=== PATIENT | female | born 1940 | race Caucasian/White ===

== ENCOUNTER 2020-09-29 18:26 | Inpatient (IN) | payer MEDICARE, OTHER ==
[2020-09-29 19:19] LABS: Bilirubin Negative (Negative); Blood, Urine Negative (Negative); Clarity Extra Turbid (Clear); Glucose, Urine (Dipstick) Normal (Negative); Ketone, Urine 20 mg/dL (Negative); Leukocyte Negative Leu/uL (Negative); Nitrite Negative (Negative); Protein, Urine (Dipstick) Negative (Neg-Trace); Specific Gravity, Urine 1.012 (1.002-1.036); Urobilinogen Normal mg/dL (Less than 2)
[2020-09-29 19:20] LABS: #Lymphocytes 0.3 thou/uL (1.20-3.40); #Monocytes 0.4 thou/uL (0.11-0.59); #Neutrophils 12.5 thou/uL (1.40-6.50); %Basophils 0.1 % (0.0-1.0); %Eosinophils 0.1 % (0.0-10.0); %Lymphocytes 2.2 % (21.0-51.0); %Monocytes 3.1 % (0.0-10.0); %Neutrophils 94.5 % (42.0-75.0); Hemoglobin 12.1 g/dL (12.0-16.0); Mean Corpuscular HGB CONC 33.9 g/dL (32.0-36.0); Mean Corpuscular Hemoglobin 31.8 pg (27.0-31.0); Mean Corpuscular Volume 93.7 fL (78.0-98.0); Mean Platelet Volume 6.9 fL (7.4-10.4); Platelet Count 271 thou/uL (130-400); RBC Distribution Width 11.2 % (11.5-14.5); White Blood Cell (WBC) Count 13.3 thou/uL (4.8-10.8)
--- NOTE | 2020-09-29 19:20 | RAD ---
Portable frontal chest radiograph: 09/29/2020 COMPARISON: None available HISTORY: Fall, trauma, pain FINDINGS: Mild increased linear interstitial density. There is atherosclerotic calcification of the a ortic arch. There is no pneumothorax or pleural fluid. No focal consolidation or alveolar edema. Impression: No acute findings.
--- NOTE | 2020-09-29 19:21 | RAD ---
Frontal and lateral imaging of the right femur: 09/29/2019 HISTORY: Fall, trauma, pain FINDINGS: There is an obliquely oriented fracture at the base of the right femoral head with impactio n and proximal/lateral displacement. There is significant degenerative change involving the right knee with medial and lateral compartment narrowing. IMPRESSION: Impacted and displaced acute fracture at the base of the right femoral head. Orthopedic c onsultation advised.
[2020-09-29 19:26] LABS: Prothrombin Time 12.9 sec (12.0-14.7)
[2020-09-29 19:39] LABS: ALT (SGPT) 35 U/L (8-55); AST (SGOT) 39 U/L (5-34); Albumin 4.4 g/dL (3.4-4.8); Alkaline Phosphatase 165 U/L (40-110); Anion Gap 15 mmol/L (10-20); BUN (Urea Nitrogen) 9 mg/dL (9.8-20.1); Bilirubin, Total 0.7 mg/dL (0.2-1.2); Calc. Creatinine Clearance 0 mL/min (70-130); Calcium 9.1 mg/dL (7.8-10.44); Carbon Dioxide 27 mmol/L (23-31); Chloride 88 mmol/L (98-107); Globulin 2.9 g/dL (2.4-3.5); Glucose 149 mg/dL (83-110); Potassium 3.7 mmol/L (3.5-5.1); Protein, Total 7.3 g/dL (6.0-8.3); Sodium 126 mmol/L (136-145)
[2020-09-29] MEDS ORDERED: Morphine 4 MG/ML VIAL ONE (20:31)
[2020-09-29] MEDS ORDERED: Ketorolac Tromethamine 30 MG/ML VIAL ONE (20:31)
[2020-09-29] MEDS ORDERED: Ondansetron PF 4 MG/2 ML Vial ONE (20:33)
[2020-09-29] MEDS ORDERED: Dextrose 50% Abboject 50 ML SYRINGE SLOW IVP PRN (21:01)
[2020-09-29] MEDS ORDERED: hydrALAZINE 20 MG/ML VIAL SLOW IVP PRN (21:01)
[2020-09-29] MEDS ORDERED: Dextrose 5% in Water 1,000 ML IV PRN (21:01)
[2020-09-29] MEDS ORDERED: Morphine 2 MG/ML VIAL SLOW IVP PRN (21:01)
[2020-09-29] MEDS ORDERED: traMADol HCl 50 MG TAB PO PRN ×2 (21:03)
[2020-09-29] MEDS ORDERED: Cyclobenzaprine 10 MG TAB PO PRN (21:03)
[2020-09-29 22:09] LABS: Magnesium 1.7 mg/dL (1.6-2.6); Phosphorus 4.5 mg/dL (2.3-4.7)
--- NOTE | 2020-09-29 22:36 | HP ---
TRAUMA SURGEON: Dr. Rivers. CONSULTING PHYSICIAN: Dr. Urbina. HISTORY OF PRESENT ILLNESS: Patient is an 80-year-old female who presented to the emergency department via EMS after mechanical fall. Patient was trying to get onto a ramp to walk up to a building. She was not able to sampler pickup her leg all the way and subsequently she tripped on the ledge of the ramp falling forward. Patient denies hitting her head or anticoagulation use. She denies loss of consciousness and tingling in her bilateral upper and lower extremities. Denies neck pain, weakness, chest pain, shortness of breath, cough, nausea, vomiting, diarrhea. REVIEW OF SYSTEMS: All additional 10-point review of systems negative, except as indicated above. PAST MEDICAL HISTORY: Anxiety, hyperlipidemia, diverticulosis. PAST SURGICAL HISTORY: Hysterectomy, appendectomy, tonsillectomy. SOCIAL HISTORY: Patient denies tobacco, drug, and alcohol use. She lives at home independently. She still drives. MEDICATIONS: 1. Colesevelam. 2. Beano. 3. Prozac. 4. Flonase. ALLERGIES: AMOXICILLIN, BUSPIRONE, PRAVASTATIN, ROSUVASTATIN, TETRACYCLINES. PHYSICAL EXAMINATION: VITAL SIGNS: There is no temperature documented, respiratory rate 17, oxygen saturation 99% on 2 L nasal cannula, blood pressure 175/121, heart rate 82. PRIMARY SURVEY: Airway intact. Adequate breath sounds bilaterally. 2+ pulses in the bilateral radials, femorals, and DPs. GCS 15. Gross motor and sensation intact. No lacerations, bruising, or external bleeding. Patient has deformity to her right anterior lateral hip. SECONDARY SURVEY: HEAD: Normocephalic and atraumatic. EYES: Pupils 3 to 2, equal, round, and reactive to light bilaterally. ENT: No signs of trauma. C-SPINE: No signs of trauma. No deformity. No step-offs. Nontender. C- collar not in place. CHEST: Nontender. No crepitus, no abrasions, or ecchymosis noted. ABDOMEN: Soft, nontender, nondistended. PELVIS: Stable to palpation. Nontender. No abrasions or ecchymosis noted. RECTAL: Deferred. GENITOURINARY: Deferred. EXTREMITIES: Patient has some deformity to her right anterior lateral femur. No abrasions or ecchymosis noted. 2+ pulses in bilateral radials, femorals, and DPs. BACK/SPINE: No step-offs or deformities or tenderness to palpation of the thoracic or lumbar spine. No abrasions or ecchymosis noted. NEUROLOGIC: 5/5 strength in bilateral cafeteria food server, plantar flexion, dorsiflexion, gross normal sensation x4 extremities. LABORATORY FINDINGS: White count 13.3, hemoglobin 12.1, hematocrit 35.6, platelets 271. INR 1.0, sodium 126, potassium 3.7, chloride 88, bicarb 27, BUN 9, creatinine 0.58, glucose 149, total bilirubin 0.7, AST 39, ALT 35, alkaline phosphatase 165. UA is negative. DIAGNOSTIC FINDINGS: Chest x-ray demonstrates no acute findings. X-ray of the right femur demonstrates impacted and displaced acute fracture at the base of the right femoral head. Orthopedic consultation advised. ASSESSMENT: 1. Status post mechanical fall from standing. 2. Right femoral neck fracture. 3. Hyponatremia, acute versus chronic-likely due to dehydration. 4. History of anxiety, hyperlipidemia, and diverticulosis. PLAN: The patient will be admitted to the Trauma Service. She will go to the regular surgical nursing floor. She has a heart healthy diet for now and will be n.p.o. at midnight. She will also have normal saline at 75 an hour for a total of [address] Urbina has been consulted and will evaluate the patient to go to the OR tomorrow. Patient will likely need placement in acute rehab facility postoperatively. This patient was discussed with Dr. Rivers before this dictation. Job ID: [id number] MTDD
[2020-09-29] MEDS: Acetaminophen 500 MG TAB PO SCH (22:58)
[2020-09-29] MEDS: Ondansetron PF 4 MG/2 ML Vial IVP PRN (22:59)
[2020-09-29] MEDS: Sodium Chloride 0.9% 1,000 ML IV SCH (23:01)
[2020-09-29] MEDS ORDERED: Magnesium 2 GM/50 ML 2 GM in Premix Bag 1 BAG IVPB SCH (23:45)
[2020-09-30 00:08] VITALS: BMI 20.6
[2020-09-30] MEDS: Ibuprofen 200 MG TAB PO SCH ×3 (05:11→21:35)
[2020-09-30] MEDS: Acetaminophen 500 MG TAB PO SCH ×4 (05:12→23:04)
[2020-09-30 05:46] LABS: #Lymphocytes 0.6 thou/uL (1.20-3.40); #Monocytes 0.7 thou/uL (0.11-0.59); #Neutrophils 12.2 thou/uL (1.40-6.50); %Eosinophils 0.2 % (0.0-10.0); %Lymphocytes 4.6 % (21.0-51.0); %Monocytes 5.1 % (0.0-10.0); %Neutrophils 90.1 % (42.0-75.0); Hemoglobin 11.6 g/dL (12.0-16.0); Mean Corpuscular Hemoglobin 29.9 pg (27.0-31.0); Mean Corpuscular Volume 93.4 fL (78.0-98.0); Platelet Count 288 thou/uL (130-400); RBC Distribution Width 11.5 % (11.5-14.5); Red Blood Cell (RBC) Count 3.86 mill/uL (4.20-5.40); White Blood Cell (WBC) Count 13.5 thou/uL (4.8-10.8)
[2020-09-30 06:05] LABS: Anion Gap 15 mmol/L (10-20); BUN (Urea Nitrogen) 14 mg/dL (9.8-20.1); Calc. Creatinine Clearance 50 mL/min (70-130); Calcium 8.9 mg/dL (7.8-10.44); Carbon Dioxide 28 mmol/L (23-31); Chloride 88 mmol/L (98-107); Glucose 108 mg/dL (83-110); Magnesium 2.7 mg/dL (1.6-2.6); Phosphorus 4.1 mg/dL (2.3-4.7); Potassium 4.1 mmol/L (3.5-5.1); Sodium 127 mmol/L (136-145)
--- NOTE | 2020-09-30 07:59 | CON ---
DATE OF CONSULTATION: 09/30/2020 REQUESTING PHYSICIAN: Jared Rivers MD BRIEF HISTORY OF PRESENT ILLNESS: The patient is an 80 year old female, who presented to the emergency department yesterday evening following a ground level fall at home. She reports that she was trying to walk up a ramp when she tripped and fell. She reports that she uses a cane for ambulation. She reports that she is predominantly a household ambulator. There was no loss of consciousness. She denies any other problems within her extremities. This morning, she is examined in her hospital bed. She is found to be awake and alert. She does have a daughter who lives in [place]. PAST MEDICAL HISTORY: Remarkable for anxiety, hyperlipidemia, and history of diverticulosis. PAST SURGICAL HISTORY: Includes hysterectomy, appendectomy, and tonsillectomy. MEDICATIONS: Include: 1. Prozac. 2. Flonase. 3. Colesevelam. 4. Beano. ALLERGIES: PER THE MEDICAL RECORD INCLUDE AMOXICILLIN, SENSITIVITY TO STATINS, TETRACYCLINE. FAMILY HISTORY: Noncontributory for this fall. SOCIAL HISTORY: She lives independently at home. She denies a history of cigarettes, alcohol, or drug use. REVIEW OF SYSTEMS: The patient does not report any recent fevers, chills, or sweats. She denies coughs, shortness of breath, or chest pain. She denies numbness, tingling, or weakness in her extremities prior to this fall. PHYSICAL EXAMINATION: VITAL SIGNS: She is found to have a temperature of 97.7, heart rate of 89, respiratory rate of 18, and blood pressure 160/71. HEENT: Atraumatic, normocephalic. HEART: Shows a regular rate and rhythm without murmur. LUNGS: Clear to auscultation bilaterally with good breath sounds. Chest wall is nontender. ABDOMEN: Flat, soft, and nontender. PELVIS: Stable to compression. EXTREMITIES: Remarkable for bilateral upper extremities without deformities or complaints of pain. She is moving her shoulders, elbows, and wrists normally. She reports normal subjective sensation in the radial, median, and ulnar distributions. The left lower extremity is remarkable for no complaints of pain. There is no deformity. I am able to passively move her hip, knee, and ankle without any discernible pain or crepitation. She is wiggling her toes normally. The right lower extremity is remarkable for very minimal shortening. There is no obvious external rotation. She does have pain with any type of motion at the hip, including simple log-rolling of the thigh. This was felt in the groin as a sharp pain. The knee, ankle, and foot appear atraumatic. She is wiggling her toes normally and has intact subjective sensation. LABORATORY DATA: She was found to have a white blood cell count of 13.5, hematocrit of 36.1, and 288,000 platelets. She has an INR of 1.0. X-rays, 2-view x-ray of right femur was obtained and is remarkable for a varus impacted femoral neck fracture at the hip with also displacement noted on the lateral projection. 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 ASSESSMENT: An 80-year-old lady, status post ground level fall, sustaining right femoral neck fracture with comorbidities including anxiety, hyperlipidemia, and history of diverticulosis. PLAN: Today, I discussed with the patient that she does have a femoral neck fracture with impaction and displacement. Given that she is currently a household ambulator, I believe that she would be an excellent candidate for hemiarthroplasty. I have discussed with the patient that the goal of the surgery would be to allow her to again ambulate probably with a walker at this point in time to help minimize further falls. Today, we also discussed risks and benefits of the procedure. Risks include, but are not limited to bleeding, infection, nerve injury, DVT, PE, dislocation, leg length inequality, loss of limb or life. The patient appears to understand and does wish to proceed. Written consent will be obtained prior to the operating room and the patient was also ordered to be placed on the [facility] protocol for prophylactic antibiotics. Job ID: [id number] [facility]
[2020-09-30] MEDS: Famotidine/PF 20 mg/2ml Vial SLOW IVP SCH ×2 (08:33→21:35)
[2020-09-30] MEDS ORDERED: PROPOFOL 200 MG/20 ML VIAL ONE (09:19)
[2020-09-30] MEDS ORDERED: Ondansetron PF 4 MG/2 ML Vial ONE (09:19)
[2020-09-30] MEDS ORDERED: Dexamethasone 20 MG/5 ML VIAL ONE (09:19)
[2020-09-30] MEDS ORDERED: PHENYLEPHRINE-NS 100 MCG/ML 10 ML SYRINGE ONE (09:19)
[2020-09-30] MEDS ORDERED: Rocuronium Bromide 10 MG/ML (10ML VIAL) ONE (09:19)
[2020-09-30] MEDS ORDERED: Clindamycin/D5W 900 mg/50 ml Premix Bag ONE (09:34)
[2020-09-30] MEDS: Senokot S 8.6-50 MG TAB PO SCH ×2 (09:58→21:36)
[2020-09-30] MEDS: Polyethylene Glycol 3350 17 GM Packet PO SCH (09:58)
[2020-09-30] MEDS ORDERED: Levofloxacin 500 mg/D5W 100 ml Premix Bag ONE (10:27)
[2020-09-30] MEDS ORDERED: Fentanyl 100 MCG/2 ML VIAL ONE (13:43)
--- NOTE | 2020-09-30 13:49 | RAD ---
XR Hip Rt 2-3 View History: Postop evaluation Comparison: None. Findings: Satisfactory appearance right hip arthroplasty. Expected postoperative gas and edema. Impression: Satisfactory postoperative appearance.
--- NOTE | 2020-09-30 13:49 | RAD ---
XR Pelvis AP STANDARD History: Postop evaluation Comparison: None. Findings: Satisfactory appearance right hip arthroplasty. Expected postoperative gas and edema. Impression: Satisfactory postoperative appearance.
[2020-09-30] MEDS ORDERED: Promethazine HCl 25 MG/ML VIAL SLOW IVP PRN (14:12)
[2020-09-30] MEDS ORDERED: Promethazine HCl 25 MG/ML VIAL IM PRN (14:12)
[2020-09-30] MEDS ORDERED: Ondansetron HCl/PF 4 MG/2 ML Vial IVP PRN (14:12)
[2020-09-30] MEDS: Sodium Chloride 0.9% 1,000 ML IV SCH (16:13)
[2020-09-30] MEDS: Ondansetron PF 4 MG/2 ML Vial IVP PRN (17:36)
[2020-09-30] MEDS: Clindamycin/D5W 900 MG in Premix Bag 1 BAG IVPB SCH (17:39)
--- NOTE | 2020-09-30 19:02 | PRG ---
DATE OF SERVICE: 09/30/2020 SUBJECTIVE: The patient was seen after returning from the operating room this evening. The patient had her right femoral neck fracture repaired by Dr. Johnson. The patient's pain is currently controlled at this time. She does report some mild nausea, but was able to eat earlier. PT is currently at bedside doing range of motion exercises in the bed. OBJECTIVE: VITAL SIGNS: Temperature 97.6, pulse 71, respirations 16, SpO2 of 100% on 2 L nasal cannula, and blood pressure 133/72. GENERAL: Elderly female, awake, alert, in no distress. HEENT: Unremarkable. RESPIRATORY: Good inspiratory and expiratory effort, respirations are even and nonlabored. ABDOMEN: Soft, nontender, nondistended. EXTREMITIES: Neurovascularly intact x4. NEUROLOGIC: No focal deficits. LABORATORY DATA: WBC 13.5, RBC 3.86, hemoglobin 11.6, hematocrit 36.1, platelets 288. Sodium 127, potassium 4.1, chloride 88, BUN 14, creatinine 0.59, estimated GFR greater than 90, glucose 108, calcium 8.9, phosphorus 4.1, magnesium 2.7. DIAGNOSTICS: No new diagnostics to review. ASSESSMENT: 1. Status post mechanical fall from standing. 2. Right femoral neck fracture, status post repair. 3. Hyponatremia. 4. History of anxiety, hyperlipidemia, and diverticulosis. PLAN: Continue supportive care and pain regimen. Continue diet as tolerated. We will add a scopolamine patch as the patient is still having some nausea. PT and OT. Job ID: [id number]
[2020-09-30] MEDS ORDERED: Polyvinyl Alcohol 1.4%/Povidone 0.6% Opth Drops EA EYE PRN (20:19)
[2020-09-30] MEDS ORDERED: ALPRAZolam 0.25 MG TAB PO PRN (20:22)
[2020-09-30] MEDS ORDERED: Scopolamine 1.5 mg/72 hour Patch TD SCH (21:00)
[2020-09-30] MEDS: FLUoxetine HCl 10 MG CAP PO SCH (21:36)
--- NOTE | 2020-10-01 00:31 | PRG ---
DATE OF SERVICE: 09/30/2020 SUBJECTIVE: The patient was seen this evening during rounds. She was lying in bed, resting comfortably, and asleep with no signs of acute distress. Nursing reported no acute events. She is postoperative day 0, status post fixation of her right femoral neck fracture. OBJECTIVE: VITAL SIGNS: Temperature 97.5, pulse 80, respirations 16, oxygen saturation 98% on 2 L nasal cannula, blood pressure 119/68. ASSESSMENT: 1. Status post mechanical fall from standing. 2. Right femoral neck fracture, status post repair. 3. Hyponatremia, improving. 4. History of diverticulitis, hyperlipidemia, and anxiety. PLAN: Continue current regular diet. Continue IV fluids until the current bag is finished. Likely discontinue Tate in the morning. Start aspirin tomorrow for DVT prophylaxis. Start physical and occupational therapy tomorrow as well. The patient will likely need placement in acute rehab facility. Job ID: [id number]
[2020-10-01] MEDS: Clindamycin/D5W 900 MG in Premix Bag 1 BAG IVPB SCH ×2 (03:25→09:44)
[2020-10-01 06:08] LABS: #Lymphocytes 0.6 thou/uL (1.20-3.40); #Monocytes 0.7 thou/uL (0.11-0.59); %Eosinophils 0.3 % (0.0-10.0); %Lymphocytes 8.5 % (21.0-51.0); %Monocytes 9.1 % (0.0-10.0); %Neutrophils 82.2 % (42.0-75.0); Hemoglobin 9.4 g/dL (12.0-16.0); Mean Corpuscular HGB CONC 34.1 g/dL (32.0-36.0); Mean Corpuscular Hemoglobin 32.3 pg (27.0-31.0); Mean Corpuscular Volume 94.8 fL (78.0-98.0); Mean Platelet Volume 7.1 fL (7.4-10.4); Platelet Count 202 thou/uL (130-400); RBC Distribution Width 11.4 % (11.5-14.5); Red Blood Cell (RBC) Count 2.91 mill/uL (4.20-5.40); White Blood Cell (WBC) Count 7.2 thou/uL (4.8-10.8)
[2020-10-01] MEDS: Acetaminophen 500 MG TAB PO SCH ×4 (06:27→23:19)
[2020-10-01] MEDS: Ibuprofen 200 MG TAB PO SCH ×3 (06:28→23:18)
[2020-10-01 06:36] LABS: Anion Gap 11 mmol/L (10-20); BUN (Urea Nitrogen) 10 mg/dL (9.8-20.1); Calc. Creatinine Clearance 59 mL/min (70-130); Carbon Dioxide 29 mmol/L (23-31); Chloride 96 mmol/L (98-107); Glucose 94 mg/dL (83-110); Magnesium 1.9 mg/dL (1.6-2.6); Phosphorus 3.1 mg/dL (2.3-4.7); Potassium 3.4 mmol/L (3.5-5.1); Sodium 133 mmol/L (136-145)
[2020-10-01] MEDS ORDERED: Potassium Phosphate 30 MMOL, Magnesium Sulfate 2 GM in Sodium Chloride 0.9% 250 ML 250 ML IVPB SCH (09:00)
[2020-10-01] MEDS ORDERED: Magnesium Sulfate 2 GM in Sodium Chloride 0.9% 100 ML IVPB SCH (09:00)
[2020-10-01] MEDS: Cholestyramine/Aspartame 4 gm Packet PO SCH ×2 (09:42→18:27)
[2020-10-01] MEDS: Aspirin 81 mg Enteric Coated Tablet PO SCH ×2 (09:43→20:15)
[2020-10-01] MEDS: Polyethylene Glycol 3350 17 GM Packet PO SCH (09:43)
[2020-10-01] MEDS: Loratadine 10 MG TAB PO SCH (09:43)
[2020-10-01] MEDS: Senokot S 8.6-50 MG TAB PO SCH ×2 (09:43→20:16)
--- NOTE | 2020-10-01 09:49 | OP ---
DATE OF PROCEDURE: 09/30/2020 POSTOPERATIVE DIAGNOSIS: Right femoral neck fracture, displaced. POSTOPERATIVE DIAGNOSIS: Right femoral neck fracture, displaced. PROCEDURE PERFORMED: Right hip hemiarthroplasty. ANESTHESIA: General. CORN CHIP MAKER: Alessandro. ESTIMATED BLOOD LOSS: 150 mL. IMPLANTS: Shelton system was used with a size 2 cemented Accolade stem and a 44 mm endoprosthesis with a -4 mm neck adjustment sleeve. COMPLICATIONS: None. DRAINS: None. SPECIMENS: None. OUTCOME: Satisfactory. INDICATIONS FOR PROCEDURE: The patient is an 80-year-old lady, status post ground level fall sustaining a displaced right femoral neck fracture. The patient is a household ambulator with a cane. After discussion with the patient as well as her daughter including risks and benefits, we decided to proceed with hemiarthroplasty. Informed consent has been obtained. I believe all questions answered. DESCRIPTION OF PROCEDURE: The patient was brought to the operating room and a time-out performed followed by induction of general anesthesia. She was positioned in the left lateral decubitus position and a sterile prep and drape was performed of the right lower extremity. A curvilinear incision was made centered over the greater trochanter. After skin was sharply incised, dissection was carried down through the subcutaneous fat, exposing the fascia rogers and tensor fascia. This structure was incised in line with the skin incision and then a Charnley retractor placed in the wound. The trochanteric bursa was swept off the short external rotators and with this move, the sciatic nerve became immediately visible within the wound at a somewhat superficial location. Care was taken to protect the nerve during the balance of the surgery. An elevator was passed under the abductors and the piriformis. This held by my office administrative assistant while I performed a T capsulotomy. The superior and inferior gemelli were released off the posterior aspect of the femur and reflected posteriorly to protect the sciatic nerve. The femoral head was removed with a corkscrew device. This was sized to a size 44. While my office administrative assistant provided internal rotation of the hip, the proximal femur was further prepared to accept the femoral stem. First, an oscillating saw was used to make a femoral neck cut approximately 1 cm above the lesser trochanter. This was followed by removal of some small bony fragments. A box chisel was placed and used to open the proximal femoral canal. A T-handle awls were then passed down the canal. Broaching was then started at sized 2, continued up to size 5; however, at size 5, a trial reduction was performed and the neck that was associated with the size 5 trial was far too long in order to give the patient excessive leg length and offset. As such, a size 2 neck trial broach and this provided excellent gnosticist of leg lengths and good stability of the hip as checked with the 44 trial head. Again, while my office administrative assistant provided traction and internal rotation, the hip was then dislocated and the stem removed from the canal of the femur. A 3 L normal saline was then irrigated through the acetabulum as well as proximal femoral canal. A bony tampon device was then placed in the femoral canal to absorb bleeding while cement was mixed. The cement restrictor was passed down the femoral canal to an appropriate depth and then the proximal femur filled with poly methylmethacrylate cement with tobramycin added. The stem was introduced, trying to create anatomic version. While holding the stem in place, with my office administrative assistant again providing positioning and internal rotation at the hip. Once the cement fully cured, the final 44 mm unipolar head was applied to the stem and then my office administrative assistant reduced the hip while I removed the capsular leaflets from the joint. Once the hip was reduced, it was able to be brought into the 90:90 position with internal rotation of 70 degrees before began to sublux. At this point, the wound was again irrigated well. My office administrative assistant provided the positioning of the leg, proceeded with closure of the capsule using #2 Vicryl. #2 Vicryl was also used for closure of the fascia rogers and tensor fascia. This followed by 0 Vicryl for Ean's fascia, then 2-0 Vicryl subcutaneously. Demetrio were used for final closure. At the completion of this, Xeroform gauze tape dressing was applied to the thigh and then the patient was transferred to recovery room in stable condition. There were no complications. The patient tolerated the procedure well. Job ID: [id number]
[2020-10-01] MEDS: Famotidine/PF 20 mg/2ml Vial SLOW IVP SCH ×2 (09:53→20:15)
[2020-10-01] MEDS: Ascorbic Acid 500 mg Chewable Tablet PO SCH ×2 (11:18→20:15)
[2020-10-01] MEDS: Ferrous Sulfate 325 MG TAB PO SCH ×2 (11:20→18:35)
--- NOTE | 2020-10-01 12:18 | EKG ---
Test Reason : Blood Pressure : / mmHG Vent. Rate : 075 BPM Atrial Rate : 075 BPM P-R Int : 146 ms QRS Dur : 084 ms QT Int : 414 ms P-R-T Axes : 054 034 047 degrees QTc Int : 462 ms Normal sinus rhythm Possible Left atrial enlargement Borderline ECG Confirmed by JOLEEN NOLEN DO ([id number]), acquisition editor CHAYO MORALEZ ([id number] on 10/01/2020 12:18:45 PM Referred By: Confirmed By:JOLEEN NOLEN DO
--- NOTE | 2020-10-01 18:51 | PRG ---
DATE OF SERVICE: 10/01/2020 SUBJECTIVE: The patient was seen during morning rounds on the surgical floor. The patient is postop day #1 right hip hemiarthroplasty. The patient had no overnight events. The patient is tolerating a regular diet. The patient's pain is controlled at this time. The patient's urinary output is adequate for age and weight. OBJECTIVE: VITAL SIGNS: Temperature 98.1, pulse 67, respirations 16, SpO2 of 99% on room air, blood pressure 137/70. GENERAL: Well-appearing elderly female, awake, alert, in no distress. HEENT: Unremarkable. RESPIRATORY: Good inspiratory and expiratory effort. Respirations are even and nonlabored. CARDIAC: Regular rate, regular rhythm. ABDOMEN: Soft, nontender, nondistended. EXTREMITIES: Neurovascularly intact x4. NEUROLOGIC: No focal deficits. LABORATORY DATA: WBC 7.2, RBC 2.91, hemoglobin 9.4, hematocrit 27.6, platelets 202. Sodium 133, potassium 3.4, chloride 96, BUN 10, creatinine 0.50, estimated GFR greater than 90, glucose 94, phosphorus 3.1, magnesium 1.9. DIAGNOSTICS: No new diagnostics to review today. ASSESSMENT: 1. Status post mechanical fall from standing. 2. Right femoral neck fracture, postop day #1 right hip hemiarthroplasty. 3. Hyponatremia, improving. 4. Hypokalemia. 5. History of diverticulitis, hyperlipidemia, and anxiety. PLAN: Continue supportive care and pain regimen. Discontinue Tate catheter. Chemical VTE prophylaxis with aspirin. Continue mechanical DVT prophylaxis. Physical and occupational therapy. The patient will most likely need inpatient rehab or [facility] facility for continued physical therapy. We will replace electrolytes. We will also add iron and vitamin C. the plan was discussed with the patient, who agrees. Job ID: [id number]
[2020-10-01] MEDS: FLUoxetine HCl 10 MG CAP PO SCH (20:15)
--- NOTE | 2020-10-01 23:07 | PRG ---
DATE OF SERVICE: SUBJECTIVE: The patient was seen this evening during rounds. She was lying in bed, resting comfortably and asleep with no signs of acute distress. Nursing reports no acute events. OBJECTIVE: VITAL SIGNS: Temperature 97.8, pulse 68, respirations 16, oxygen saturation 99% on room air, blood pressure 104/64. ASSESSMENT: 1. Status post mechanical fall from standing. 2. Right femoral neck fracture, status post repair. 3. History of diverticulitis, hyperlipidemia, and anxiety. PLAN: Continue current diet and pain regimen. Continue physical and occupational therapy. Continue supportive care. The patient is pending discharge to acute rehab facility. She is ready for discharge at this time. Job ID: [id number]
[2020-10-01] MEDS: Sodium Chloride 5% Opth 15 ML BOT R EYE SCH ×2 (23:19→23:21)
[2020-10-02] MEDS: Acetaminophen 500 MG TAB PO SCH ×3 (05:48→19:03)
[2020-10-02] MEDS: Ibuprofen 200 MG TAB PO SCH ×3 (05:48→21:02)
[2020-10-02 05:58] LABS: #Eosinphils 0.1 thou/uL (0.0-0.7); #Lymphocytes 0.8 thou/uL (1.20-3.40); #Monocytes 0.6 thou/uL (0.11-0.59); #Neutrophils 4.2 thou/uL (1.40-6.50); %Basophils 0.1 % (0.0-1.0); %Eosinophils 1.5 % (0.0-10.0); %Lymphocytes 14.4 % (21.0-51.0); %Monocytes 10.8 % (0.0-10.0); %Neutrophils 73.2 % (42.0-75.0); Hemoglobin 8.5 g/dL (12.0-16.0); Mean Corpuscular HGB CONC 33.7 g/dL (32.0-36.0); Mean Corpuscular Hemoglobin 32.3 pg (27.0-31.0); Mean Corpuscular Volume 95.7 fL (78.0-98.0); Mean Platelet Volume 6.9 fL (7.4-10.4); Platelet Count 205 thou/uL (130-400); RBC Distribution Width 11.4 % (11.5-14.5); Red Blood Cell (RBC) Count 2.64 mill/uL (4.20-5.40); White Blood Cell (WBC) Count 5.7 thou/uL (4.8-10.8)
[2020-10-02 06:26] LABS: Anion Gap 10 mmol/L (10-20); BUN (Urea Nitrogen) 12 mg/dL (9.8-20.1); Calc. Creatinine Clearance 54 mL/min (70-130); Calcium 8.2 mg/dL (7.8-10.44); Carbon Dioxide 30 mmol/L (23-31); Chloride 97 mmol/L (98-107); Glucose 91 mg/dL (83-110); Magnesium 2.2 mg/dL (1.6-2.6); Phosphorus 3.8 mg/dL (2.3-4.7); Sodium 133 mmol/L (136-145)
[2020-10-02] MEDS: Loratadine 10 MG TAB PO SCH (08:39)
[2020-10-02] MEDS: Ferrous Sulfate 325 MG TAB PO SCH ×2 (08:39→16:39)
[2020-10-02] MEDS: Aspirin 81 mg Enteric Coated Tablet PO SCH ×2 (08:39→21:01)
[2020-10-02] MEDS: Famotidine/PF 20 mg/2ml Vial SLOW IVP SCH ×2 (08:39→21:01)
[2020-10-02] MEDS: Ascorbic Acid 500 mg Chewable Tablet PO SCH ×2 (08:39→21:01)
[2020-10-02] MEDS: Cholestyramine/Aspartame 4 gm Packet PO SCH ×2 (08:39→16:39)
[2020-10-02] MEDS: Senokot S 8.6-50 MG TAB PO SCH ×2 (08:40→21:01)
[2020-10-02] MEDS: Polyethylene Glycol 3350 17 GM Packet PO SCH (08:40)
--- NOTE | 2020-10-02 16:28 | PRG ---
DATE OF SERVICE: 10/02/2020 SUBJECTIVE: The patient was seen during morning rounds. Awake, alert, in no distress. The patient is hospital day #3, status post mechanical fall. The patient is postop day #2, status post right hip hemiarthroplasty for a right femoral neck fracture. The patient had no overnight events. The patient is tolerating a regular diet. The patient's pain is currently controlled at this time. The patient did walk approximately 300 feet with physical therapy yesterday. The patient voices no complaints or concerns. OBJECTIVE: VITAL SIGNS: Temperature 97.7, pulse 64, respirations 12, SpO2 of 100% on room air, blood pressure 131/67. GENERAL: Well-appearing elderly female, awake, alert, in no distress. HEENT: Unremarkable. RESPIRATORY: Good inspiratory and expiratory effort. Respirations are even and nonlabored. CARDIAC: Regular rate and regular rhythm. ABDOMEN: Soft, nontender, nondistended. EXTREMITIES: Moves all extremities, neurovascularly intact x4. NEUROLOGIC: No focal deficits. LABORATORY DATA: WBC 5.7, RBC 2.64, hemoglobin 8.5, hematocrit 25.3, platelets 205. Sodium 133, potassium 4.0, chloride 97, BUN 12, creatinine 0.55, estimated GFR greater than 90, glucose 91, calcium 8.2, phosphorus 3.8, magnesium 2.2. ASSESSMENT: 1. Status post mechanical fall from standing. 2. Right femoral neck fracture, postoperative day #2 right hip hemiarthroplasty. 3. Hyponatremia, improving. 4. History of diverticulitis, hyperlipidemia, and anxiety. PLAN: Continue supportive care and pain regimen. Continue regular diet as tolerated. Continue chemical and mechanical VTE prophylaxis. Continue iron and vitamin C for anemia. The patient is pending rehab. Job ID: [id number]
[2020-10-02] MEDS ORDERED: Sodium Phosphate 30 MMOL in Sodium Chloride 0.9% 250 ML 250 ML IVPB SCH (16:45)
[2020-10-02] MEDS: Sodium Chloride 5% Opth 15 ML BOT R EYE SCH (21:01)
[2020-10-02] MEDS: FLUoxetine HCl 10 MG CAP PO SCH (21:02)
[2020-10-03] MEDS: Acetaminophen 500 MG TAB PO SCH ×3 (00:51→12:21)
--- NOTE | 2020-10-03 01:32 | PRG ---
DATE OF SERVICE: 10/02/2020 SUBJECTIVE: The patient was seen this evening during rounds. She was lying in bed, resting comfortably and asleep with no signs of acute distress. Nursing reports no acute events. OBJECTIVE: VITAL SIGNS: Temperature 97.3, pulse 71, respirations 18, oxygen saturation 94% on room air, blood pressure 136/63. ASSESSMENT: 1. Status post mechanical fall. 2. Right femoral neck fracture, status post repair. 3. Hyponatremia, improving. 4. History of diverticulitis, hyperlipidemia, and anxiety. PLAN: Continue current diet and pain regimen. Continue physical and occupational therapy. Continue supportive care. The patient is pending discharge to acute rehab facility. She is ready for discharge at this time. Job ID: [id number]
[2020-10-03 05:38] LABS: #Eosinphils 0.1 thou/uL (0.0-0.7); #Lymphocytes 0.6 thou/uL (1.20-3.40); #Monocytes 0.6 thou/uL (0.11-0.59); #Neutrophils 3.5 thou/uL (1.40-6.50); %Basophils 0.5 % (0.0-1.0); %Eosinophils 2.5 % (0.0-10.0); %Lymphocytes 13.3 % (21.0-51.0); %Monocytes 11.4 % (0.0-10.0); %Neutrophils 72.3 % (42.0-75.0); Hemoglobin 8.7 g/dL (12.0-16.0); Mean Corpuscular HGB CONC 32.4 g/dL (32.0-36.0); Mean Corpuscular Hemoglobin 30.8 pg (27.0-31.0); Mean Corpuscular Volume 95.2 fL (78.0-98.0); Platelet Count 245 thou/uL (130-400); RBC Distribution Width 11.5 % (11.5-14.5); Red Blood Cell (RBC) Count 2.82 mill/uL (4.20-5.40); White Blood Cell (WBC) Count 4.8 thou/uL (4.8-10.8)
[2020-10-03] MEDS: Ibuprofen 200 MG TAB PO SCH ×2 (06:15→14:33)
[2020-10-03 06:19] LABS: Anion Gap 13 mmol/L (10-20); BUN (Urea Nitrogen) 8 mg/dL (9.8-20.1); Calc. Creatinine Clearance 60 mL/min (70-130); Calcium 8.2 mg/dL (7.8-10.44); Carbon Dioxide 29 mmol/L (23-31); Chloride 97 mmol/L (98-107); Glucose 91 mg/dL (83-110); Phosphorus 5.2 mg/dL (2.3-4.7); Potassium 3.9 mmol/L (3.5-5.1); Sodium 135 mmol/L (136-145)
[2020-10-03] MEDS: Polyethylene Glycol 3350 17 GM Packet PO SCH (08:41)
[2020-10-03] MEDS: Cholestyramine/Aspartame 4 gm Packet PO SCH (08:41)
[2020-10-03] MEDS: Famotidine/PF 20 mg/2ml Vial SLOW IVP SCH (08:41)
[2020-10-03] MEDS: Senokot S 8.6-50 MG TAB PO SCH (08:42)
[2020-10-03] MEDS: Ascorbic Acid 500 mg Chewable Tablet PO SCH (08:42)
[2020-10-03] MEDS: Aspirin 81 mg Enteric Coated Tablet PO SCH (08:42)
[2020-10-03] MEDS: Ferrous Sulfate 325 MG TAB PO SCH (08:42)
[2020-10-03] MEDS: Loratadine 10 MG TAB PO SCH (08:42)
[2020-10-03] MEDS: Non-Formulary Item 1 EACH (Fluticasone Propionate [Flovent Diskus] 50 MCG Blst.W.Dev) INH SCH ×2 (10:40→10:41)
[2020-10-03 11:24] VITALS: TEMP 97.8
[2020-10-03 15:21] VITALS: BP 156/69
--- NOTE | 2020-10-05 12:10 | DIS ---
DATE OF ADMISSION: 09/29/2020 DATE OF DISCHARGE: 10/03/2020 DISCHARGE ATTENDING: Dr. Villareal. CONSULTS: Orthopedic Surgery, Dr. Urbina. PROCEDURE: On 09/30/2020, right hip hemiarthroplasty was done by Dr. Johnson. PRIMARY DIAGNOSES: Status post mechanical fall from standing, right femoral neck fracture, hyponatremia. SECONDARY DIAGNOSES: Anxiety, hyperlipidemia, and diverticulosis. DISCHARGE MEDICATIONS: 1. Acetaminophen 1000 mg q.6 hours. 2. Beano 150 units. 3. Alprazolam 0.5 mg p.o. b.i.d. 4. Artificial Tears as needed. 5. Vitamin C 500 mg p.o. b.i.d. 6. Aspirin 81 mg p.o. b.i.d. for 30 days for VTE prophylaxis. 7. Calcium carbonate as needed. 8. Zyrtec 10 mg p.o. daily. 9. Welchol b.i.d. 10. Flexeril 5 mg p.o. 3 times a day as needed for muscle spasms. 11. Ferrous sulfate 325 mg p.o. b.i.d. 12. Prozac 10 mg p.o. daily. 13. Flovent b.i.d. 14. Ibuprofen 400 mg p.o. q.8 hours p.r.n. 15. Lysine 500 mg 3 times a day. 16. Multivitamin daily. 17. MiraLAX as needed. 18. Senokot as needed. 19. Tramadol 50 mg p.o. q.6 hours p.r.n. pain. No discontinued medications. HISTORY OF PRESENT ILLNESS AND HOSPITAL COURSE: This is an 80-year-old female who had a mechanical fall. The patient was trying to get onto a ramp to walk up into a building. She was not able to berry picker her leg all the way and subsequently tripped and fell forward. Patient denies hitting her head or losing consciousness. Patient denied being on any anticoagulation medications. Patient denies feeling weak or dizzy. Have not any chest pain or shortness of breath prior to the fall. Patient was evaluated in the emergency room and Orthopedics was consulted. Patient's pain was well controlled pre and postop. Patient was able to ambulate with physical therapy. Patient tolerated a regular diet. Patient was placed on iron and vitamin C for anemia. Patient did have some confusion off and on and the day of discharge, the patient had a fall. Patient was examined and there was no injuries. Patient states that she just wanted to sit on the ground. Orthopedics was also notified of the fall. Patient was able to ambulate without any difficulties. Patient's vital signs were stable and her exam was unremarkable including cardiopulmonary and GI exam. Patient was deemed stable for discharge to inpatient rehab. DISPOSITION: Stable. DISCHARGE INSTRUCTIONS: 1. Location: Inpatient rehab. 2. Diet: Regular diet. 3. Activity: Orthopedic limitations, weightbearing as tolerated. 4. Followup: Follow up with primary care physician in 7-14 days. Follow up with Orthopedic Surgery. No need to follow up with Trauma Services. This is just a summary of the patient's hospital visit, please see the entire medical record for details. Job ID: [id number] [facility]
== END 2020-10-03 16:06 | DRG 522 ==
LOC: ERS 18:26 → SURG B 19:56
PROVIDERS: ADMIT Specialist; ATTEND Specialist
PROC: 0SRR0J9 Replacement of Right Hip Joint, Femoral Surface with Synthetic Substitute, Cemented, Open Approach (ICD-10-PCS; principal; 2020-09-30)
DX: S72.001A Fracture of unspecified part of neck of right femur, initial encounter for closed fracture (principal); E87.1 Hypo-osmolality and hyponatremia; E86.0 Dehydration; M19.90 Unspecified osteoarthritis, unspecified site; E78.00 Pure hypercholesterolemia, unspecified; W01.0XXA Fall on same level from slipping, tripping and stumbling without subsequent striking against object, initial encounter; F41.9 Anxiety disorder, unspecified; Z90.710 Acquired absence of both cervix and uterus; Z90.89 Acquired absence of other organs; Z88.1 Allergy status to other antibiotic agents; Z88.8 Allergy status to other drugs, medicaments and biological substances; Z79.899 Other long term (current) drug therapy; Z88.6 Allergy status to analgesic agent; Z90.49 Acquired absence of other specified parts of digestive tract; E87.6 Hypokalemia; Z20.822 Contact with and (suspected) exposure to COVID-19
CPT/HCPCS: 36415; 51702; 71045; 72170; 80048; 80053; 81003; 83735; 84100; 85025; 85610; 85730; 87086; 93005; 96374; 96375; C1713; G0390; J0360; J1100; J1885; J1956; J2270; J2405; J2704; J3010; J3475; J3490; J7050; S0028